=== PATIENT | female | born 1990 | race Caucasian/White ===

== ENCOUNTER 2017-02-13 16:30 | Emergency (ER) | payer OTHER ==
[~2017-02-13] VITALS: Ht 157.4 cm; Wt 59.0 kg
[~2017-02-13 16:30] MED LIST: CIPRO500 MG PO; FE-TABS325 MG PO; HYDROCODONE BIT1 T11 PO; IBUPROFEN800 MG PO; PERCOCET 325 MG1 TA2 PO; PRENATAL 1 PLUS1 TA2 PO; PROZAC20 MG PO; PROZAC40 M1 PO; WELLBUTRIN SR150 MG PO; WELLBUTRIN SR200 MG PO; Zofran4 MG PO
[2017-02-13 16:51] LABS: BILIRUBIN NEGATIVE (NEGATIVE); BLOOD 3+ (NEGATIVE); CLARITY CLOUDY (CLEAR); COLOR YELLOW (YELLOW); GLUCOSE NEGATIVE (NEGATIVE); KETONE NEGATIVE (NEGATIVE); LEUKO ESTERASE 2+ (NEGATIVE); NITRITE POSITIVE (NEGATIVE); SPECIFIC GRAVITY 1.025 (1.005-1.030); UROBILINOGEN 0.2 E.U./dl (0.2-1.0)
[2017-02-13 17:34] LABS: BACTERIA 1+; EPITHELIAL CELLS TNTC; RBC TNTC rbc/hpf (0-2); WBC TNTC wbc/hpf (0-5)
[2017-02-13] MEDS ORDERED: SEPTDS PO (17:55)
[2017-02-13] MEDS ORDERED: PYRIDIUM100 MG PO (18:07)
== END 2017-02-13 18:06 | disposition home or self-care (01) ==
LOC: ED 16:30
PROVIDERS: Emergency Medicine
DX: N30.01 Acute cystitis with hematuria (principal); Z79.899 Other long term (current) drug therapy

== ENCOUNTER 2017-05-14 05:52 | Emergency (ER) | payer OTHER ==
[~2017-05-14] VITALS: Wt 59.0 kg
[~2017-05-14 05:52] MED LIST changes: +PYRIDIUM100 MG PO; +SEPTDS PO
[2017-05-14] MEDS ORDERED: LAMOTRIGINE25 M1 PO (06:13)
[2017-05-14] MEDS ORDERED: AMPHETAMINE SAL15 M1 PO (06:13)
[2017-05-14] MEDS ORDERED: NORETHINDRONE0.35 M1 PO (06:14)
[2017-05-14] MEDS ORDERED: SUMATRIPTAN SU100 M1 PO (06:14)
[2017-05-14 06:16] LABS: BASO # 0.1 10*3/uL (0.0-0.1); BASO % 0.6 % (0.0-1.0); EOS # 0.1 10*3/uL (0.0-0.4); HEMATOCRIT 40.1 % (37.0-47.0); HEMOGLOBIN 13.6 g/dl (12.0-16.0); LYMPH # 2.7 10*3/uL (1.3-4.4); LYMPH % 30.7 % (27.0-41.0); MEAN CELL VOLUME 90.1 fl (81.0-99.0); MEAN CORPUSCULAR HGB 30.6 pg (27.0-31.0); MEAN CORPUSCULAR HGB CONC 33.9 g/dl (33.0-37.0); MEAN PLATELET VOLUME 10.8 fl (9.6-12.3); MONO # 0.6 10*3/uL (0.1-1.0); MONO % 6.2 % (3.0-9.0); NEUT # 5.5 10*3/uL (2.3-7.9); NEUT % 61.3 % (47.0-73.0); PLATELET COUNT AUTOMATED 335 10*3/uL (130-400); RED BLOOD COUNT 4.45 10*6/uL (4.10-5.10); WHITE BLOOD COUNT 8.9 10*3/uL (4.8-10.8)
[2017-05-14 06:31] LABS: ALBUMIN 4.2 gm/dl (3.1-4.5); ALKALINE PHOSPHATASE 93 U/L (45-117); BUN 9 mg/dl (7-24); CHLORIDE 101 mmol/L (98-107); CREATININE 0.91 mg/dL (0.55-1.02); POTASSIUM 4.1 mmol/L (3.5-5.1); SGOT/AST 33 IU/L (3-35); SGPT/ALT 65 U/L (12-78); SODIUM 137 mmol/L (136-145); TOTAL PROTEIN 8.2 gm/dL (6.4-8.2)
[2017-05-14 06:33] LABS: B-hCG (QUALITATIVE) NEGATIVE (NEGATIVE)
[2017-05-14 06:42] LABS: BETA-HCG, QUANT < 1.0 mIU/mL (1-3); TROPONIN I < 0.015 ng/ml (<0.045)
[2017-05-14 06:43] LABS: INTERNATIONAL NORM RATIO 0.9 (2.0-3.5)
== END 2017-05-14 07:33 | disposition home or self-care (01) ==
LOC: ED 05:52
PROVIDERS: Emergency Medicine Emergency Medical Services
DX: R00.2 Palpitations (principal); Z98.890 Other specified postprocedural states; Z79.899 Other long term (current) drug therapy

== ENCOUNTER 2017-11-16 01:44 | Emergency (ER) | payer OTHER ==
[~2017-11-16] VITALS: Ht 157.4 cm; Wt 61.2 kg
[~2017-11-16 01:44] MED LIST changes: +AMPHETAMINE SAL15 M1 PO; +LAMOTRIGINE25 M1 PO; +NORETHINDRONE0.35 M1 PO; +SUMATRIPTAN SU100 M1 PO
[2017-11-16] MEDS ORDERED: ASPIRIN CHEWABL81 MG PO (01:48)
[2017-11-16 02:06] LABS: BASO % 0.4 % (0.0-1.0); EOS # 0.1 10*3/uL (0.0-0.4); EOS % 0.8 % (1.0-4.0); HEMOGLOBIN 13.6 g/dl (12.0-16.0); LYMPH # 2.5 10*3/uL (1.3-4.4); LYMPH % 23.4 % (27.0-41.0); MEAN CELL VOLUME 89.5 fl (81.0-99.0); MEAN CORPUSCULAR HGB 29.7 pg (27.0-31.0); MEAN CORPUSCULAR HGB CONC 33.2 g/dl (33.0-37.0); MEAN PLATELET VOLUME 10.9 fl (9.6-12.3); MONO # 0.8 10*3/uL (0.1-1.0); MONO % 7.3 % (3.0-9.0); NEUT # 7.3 10*3/uL (2.3-7.9); PLATELET COUNT AUTOMATED 297 10*3/uL (130-400); RED BLOOD COUNT 4.58 10*6/uL (4.10-5.10); RED CELL DISTRI WIDTH 12.9 % (0-14.5); WHITE BLOOD COUNT 10.8 10*3/uL (4.8-10.8)
[2017-11-16 02:21] LABS: ALBUMIN 4.5 gm/dl (3.1-4.5); ALKALINE PHOSPHATASE 65 U/L (45-117); BUN 7 mg/dl (7-24); CHLORIDE 106 mmol/L (98-107); CREATININE 1.01 mg/dL (0.55-1.02); LIPASE 85 U/L (73-393); POTASSIUM 3.6 mmol/L (3.5-5.1); SGOT/AST 14 IU/L (3-35); SGPT/ALT 19 U/L (12-78); SODIUM 139 mmol/L (136-145); TOTAL PROTEIN 8.1 gm/dL (6.4-8.2)
[2017-11-16 02:26] LABS: BILIRUBIN 1+ (NEGATIVE); BLOOD NEGATIVE (NEGATIVE); CLARITY SL CLOUDY (CLEAR); COLOR YELLOW (YELLOW); GLUCOSE NEGATIVE (NEGATIVE); KETONE NEGATIVE (NEGATIVE); LEUKO ESTERASE 2+ (NEGATIVE); NITRITE NEGATIVE (NEGATIVE); UROBILINOGEN 0.2 E.U./dl (0.2-1.0)
[2017-11-16 02:28] LABS: BETA-HCG, QUANT < 1.0 mIU/mL (1-3)
[2017-11-16 02:37] LABS: BACTERIA TRACE; EPITHELIAL CELLS 35-40
[2018-02-20] MEDS ORDERED: AUGMENTIN 875875 MG PO (01:51)
== END 2017-11-16 02:59 | disposition home or self-care (01) ==
LOC: ED 01:44
PROVIDERS: Student in an Organized Health Care Education/Training Program
DX: N23 Unspecified renal colic (principal); M54.5 Low back pain; Z79.899 Other long term (current) drug therapy; Z79.82 Long term (current) use of aspirin

== ENCOUNTER 2017-11-21 18:24 | Emergency (ER) | payer OTHER ==
[~2017-11-21] VITALS: Ht 157.4 cm; Wt 56.7 kg
[~2017-11-21 18:24] MED LIST changes: +ASPIRIN CHEWABL81 MG PO
[2017-11-21 19:38] LABS: BILIRUBIN NEGATIVE (NEGATIVE); BLOOD 3+ (NEGATIVE); CLARITY CLEAR (CLEAR); COLOR YELLOW (YELLOW); GLUCOSE NEGATIVE (NEGATIVE); KETONE NEGATIVE (NEGATIVE); LEUKO ESTERASE 1+ (NEGATIVE); NITRITE NEGATIVE (NEGATIVE); UROBILINOGEN 0.2 E.U./dl (0.2-1.0)
[2017-11-21 19:45] LABS: URINE AMPHETAMINES > 1000 (1000ng/ml); URINE BARBITURATES < 200 (200ng/ml); URINE BENZODIAZEPINES < 200 (200ng/ml); URINE CANNABINOIDS (THC) < 50 (50ng/ml); URINE COCAINE < 300 (300ng/ml); URINE METHADONE < 300 (300ng/ml); URINE OPIATES < 300 (300ng/ml)
[2017-11-21 19:46] LABS: URINE PHENCYCLIDINE < 25 (25ng/ml)
[2017-11-21 19:59] LABS: MUCOUS TRACE
[2017-11-21] MEDS ORDERED: PINWORM ME50 MG/1 ML PO (20:37)
[2017-11-21] MEDS ORDERED: CEPHALEXIN500 M1 PO (20:37)
[2018-02-20] MEDS ORDERED: AUGMENTIN 875875 MG PO (01:51)
== END 2017-11-21 20:40 | disposition home or self-care (01) ==
LOC: ED 18:24
PROVIDERS: Nurse Practitioner Family
DX: N39.0 Urinary tract infection, site not specified (principal); R19.5 Other fecal abnormalities; F17.200 Nicotine dependence, unspecified, uncomplicated; Z79.899 Other long term (current) drug therapy; Z79.82 Long term (current) use of aspirin

== ENCOUNTER 2017-11-25 23:07 | Emergency (ER) | payer OTHER ==
[~2017-11-25] VITALS: Wt 54.4 kg
[~2017-11-25 23:07] MED LIST changes: +CEPHALEXIN500 M1 PO; +PINWORM ME50 MG/1 ML PO
[2018-02-20] MEDS ORDERED: AUGMENTIN 875875 MG PO (01:51)
== END 2017-11-25 23:49 | disposition home or self-care (01) ==
LOC: ED 23:07
DX: F40.218 Other animal type phobia (principal); Z79.899 Other long term (current) drug therapy; Z79.82 Long term (current) use of aspirin

== ENCOUNTER 2017-12-19 20:27 | Emergency (ER) | payer OTHER ==
[~2017-12-19] VITALS: Ht 157.4 cm; Wt 56.7 kg
--- NOTE | ~2017-12-19 | EKG ---
[place], [place] ELECTROCARDIOGRAM REPORT NAME: EVERTON BEAL UNIT #: [id number] ROOM: DOCTOR: EPIPHANY DRAFT REPORT BIRTHDATE: [birth year] [facility] Test Date: 2017-12-19 Test Time: 20:38:56 Pat Name: EVERTON BEAL Department: Room: Gender: F Optometry Assistant: : [id number] Requested By: SARAH BARROS Order Number: [id number] Reading MD: Douglas Shafer MD Measurements Intervals Groom Rate: 119 P: 58 RI: 141 QRS: 71 QRSD: 83 T: 30 QT: 307 QTc: 432 Interpretive Statements Sinus tachycardia The ECG is normal. Electronically Signed On 12-20-2017 14:52:18 PDT by Douglas Shafer MD CM:EKGRPT:ELECTROCARDIOGRAM REPORT [id number] SARAH KAUFMAN DRAFT REPORT SARAH BARROS DO
[2017-12-19 20:50] LABS: BASO % 0.3 % (0.0-1.0); EOS # 0.1 10*3/uL (0.0-0.4); HEMATOCRIT 41.1 % (37.0-47.0); HEMOGLOBIN 13.5 g/dl (12.0-16.0); LYMPH # 2.4 10*3/uL (1.3-4.4); LYMPH % 34.4 % (27.0-41.0); MEAN CELL VOLUME 91.1 fl (81.0-99.0); MEAN CORPUSCULAR HGB 29.9 pg (27.0-31.0); MEAN CORPUSCULAR HGB CONC 32.8 g/dl (33.0-37.0); MONO # 0.2 10*3/uL (0.1-1.0); MONO % 2.8 % (3.0-9.0); NEUT # 4.4 10*3/uL (2.3-7.9); NEUT % 61.4 % (47.0-73.0); PLATELET COUNT AUTOMATED 340 10*3/uL (130-400); RED BLOOD COUNT 4.51 10*6/uL (4.10-5.10); RED CELL DISTRI WIDTH 12.8 % (0-14.5); WHITE BLOOD COUNT 7.1 10*3/uL (4.8-10.8)
[2017-12-19 21:06] LABS: ACT PARTIAL THROMBO TIME 23.1 SECONDS (20.8-31.5)
[2017-12-19 21:09] LABS: ALBUMIN 4.5 gm/dl (3.1-4.5); ALKALINE PHOSPHATASE 63 U/L (45-117); BUN 7 mg/dl (7-24); CHLORIDE 106 mmol/L (98-107); CREATININE 0.99 mg/dL (0.55-1.02); POTASSIUM 3.7 mmol/L (3.5-5.1); SGOT/AST 11 IU/L (3-35); SGPT/ALT 18 U/L (12-78); SODIUM 142 mmol/L (136-145); TOTAL PROTEIN 8.2 gm/dL (6.4-8.2)
[2017-12-19 21:12] LABS: TROPONIN I < 0.015 ng/ml (<0.045)
[2017-12-19 21:42] LABS: URINE AMPHETAMINES > 1000 (1000ng/ml); URINE BARBITURATES < 200 (200ng/ml); URINE BENZODIAZEPINES < 200 (200ng/ml); URINE CANNABINOIDS (THC) < 50 (50ng/ml); URINE COCAINE < 300 (300ng/ml); URINE METHADONE < 300 (300ng/ml); URINE OPIATES < 300 (300ng/ml)
[2017-12-19 21:46] LABS: URINE PHENCYCLIDINE < 25 (25ng/ml)
[2017-12-19 21:51] LABS: BILIRUBIN NEGATIVE (NEGATIVE); CLARITY CLEAR (CLEAR); COLOR YELLOW (YELLOW); GLUCOSE NEGATIVE (NEGATIVE); KETONE NEGATIVE (NEGATIVE)
[2017-12-19 21:52] LABS: BLOOD NEGATIVE (NEGATIVE); LEUKO ESTERASE NEGATIVE (NEGATIVE); NITRITE NEGATIVE (NEGATIVE); UROBILINOGEN 0.2 E.U./dl (0.2-1.0)
[2017-12-19 21:53] LABS: BACTERIA TRACE; EPITHELIAL CELLS TNTC
== END 2017-12-19 23:31 | disposition home or self-care (01) ==
LOC: ED 20:27
PROVIDERS: Emergency Medicine
DX: R07.89 Other chest pain (principal); R00.2 Palpitations; Z79.899 Other long term (current) drug therapy; Z79.82 Long term (current) use of aspirin

== ENCOUNTER 2019-02-26 19:36 | Emergency (ER) | payer MEDICARE, MEDICAID ==
[~2019-02-26] VITALS: Wt 66.2 kg
[~2019-02-26 19:36] MED LIST changes: +AUGMENTIN 875875 MG PO
[2019-02-26 20:01] LABS: BASO % 0.3 % (0.0-1.0); EOS # 0.1 10*3/uL (0.0-0.4); EOS % 0.4 % (1.0-4.0); HEMATOCRIT 29.7 % (37.0-47.0); HEMOGLOBIN 9.6 g/dl (12.0-16.0); LYMPH # 2.5 10*3/uL (1.3-4.4); MEAN CELL VOLUME 90.8 fl (81.0-99.0); MEAN CORPUSCULAR HGB 29.4 pg (27.0-31.0); MEAN CORPUSCULAR HGB CONC 32.3 g/dl (33.0-37.0); MEAN PLATELET VOLUME 11.1 fl (9.6-12.3); MONO # 0.8 10*3/uL (0.1-1.0); MONO % 6.7 % (3.0-9.0); NEUT # 8.5 10*3/uL (2.3-7.9); NEUT % 71.1 % (47.0-73.0); PLATELET COUNT AUTOMATED 251 10*3/uL (130-400); RED BLOOD COUNT 3.27 10*6/uL (4.10-5.10); RED CELL DISTRI WIDTH 13.4 % (0-14.5); WHITE BLOOD COUNT 11.9 10*3/uL (4.8-10.8)
[2019-02-26 20:09] LABS: BILIRUBIN NEGATIVE (NEGATIVE); BLOOD NEGATIVE (NEGATIVE); CLARITY CLEAR (CLEAR); COLOR YELLOW (YELLOW); GLUCOSE NEGATIVE (NEGATIVE); KETONE NEGATIVE (NEGATIVE); LEUKO ESTERASE NEGATIVE (NEGATIVE); NITRITE NEGATIVE (NEGATIVE); PH 8.5 (5.0-9.0); UROBILINOGEN 0.2 E.U./dl (0.2-1.0)
[2019-02-26 20:15] LABS: ALBUMIN 2.9 gm/dl (3.1-4.5); ALKALINE PHOSPHATASE 68 U/L (45-117); BUN 8 mg/dl (7-24); CHLORIDE 104 mmol/L (98-107); CREATININE 0.64 mg/dL (0.55-1.02); POTASSIUM 3.3 mmol/L (3.5-5.1); SGOT/AST 7 IU/L (3-35); SGPT/ALT 18 U/L (12-78); SODIUM 139 mmol/L (136-145); TOTAL PROTEIN 6.6 gm/dL (6.4-8.2)
[2019-02-26 20:21] LABS: BACTERIA TRACE
[2019-02-26] MEDS ORDERED: CEPHALEXIN500 M1 PO (22:24)
== END 2019-02-26 23:10 | disposition home or self-care (01) ==
LOC: ED 19:36
PROVIDERS: Nurse Practitioner Family
DX: O26.892 Other specified pregnancy related conditions, second trimester (principal); R30.0 Dysuria; R10.9 Unspecified abdominal pain; Z3A.25 25 weeks gestation of pregnancy; Z79.2 Long term (current) use of antibiotics; Z79.82 Long term (current) use of aspirin; Z79.899 Other long term (current) drug therapy

== ENCOUNTER 2022-04-05 12:40 | Emergency (ER) | payer MEDICARE ==
[~2022-04-05] VITALS: Wt 54.4 kg
[2022-04-05] MEDS ORDERED: CEPHALEXIN500 M1 PO (14:06)
== END 2022-04-05 15:19 | disposition home or self-care (01) ==
LOC: ED 12:40
DX: L03.012 Cellulitis of left finger (principal); Z98.890 Other specified postprocedural states